=== PATIENT | male | born 1995 | race Caucasian/White ===

== ENCOUNTER 2018-02-11 21:45 | Emergency (ER) | payer BC ==
[~2018-02-11] VITALS: Ht 182.9 cm; Wt 61.0 kg
[2018-02-11 22:00] VITALS: BP 125/84
[2018-02-11] MEDS ORDERED: CEPH-264 PO (22:13)
--- NOTE | 2018-02-11 22:13 | PHYS DOC ---
Past History Past Medical History: Other (Tourette's disorder) Past Surgical History: No Surgical History Smoking: Cigarettes Alcohol Use: None Drug Use: Heroin, Marijuana Adult General Chief Complaint Chief Complaint: FACE PROBLEM HPI HPI 22-year-old male presents with report of lesion below right side of lower lip which patient is concerned is possibly MRSA versus herpes. Patient denies fever or chills. Reports is tender to touch. Review of Systems Review of Systems Constitutional: Denies fever or chills [] Integument: Reports skin lesion Neurologic: Denies headache, focal weakness or sensory changes [] Complete systems were reviewed and found to be within normal limits, except as documented in this note. Allergies Allergies Allergies Coded Allergies Type Severity Reaction Last Updated Verified No Known Drug Allergies 02/11/18 No Physical Exam Physical Exam Constitutional: Well developed, well nourished, no acute distress, non-toxic appearance. [] Lungs & Thorax: No respiratory distress noted Skin: Warm, dry, no erythema, Small 0.5cm lesion just beneath leslie border of lower lip on right. No fluctuance. Possible comedone. Neurologic: Alert and oriented X 3, normal motor function, normal sensory function, no focal deficits noted. [] Psychologic: Affect normal, judgement normal, mood normal. [] Current Patient Data Vital Signs Vital Signs Date Time Temp Pulse Resp B/P (MAP) Pulse Ox O2 Delivery O2 Flow Rate FiO2 02/11/18 22:00 98.1 76 18 99 Room Air EKG EKG [] Radiology/Procedures Radiology/Procedures [] Course & Med Decision Making Course & Med Decision Making Patient presents with patient and physical exam consistent for small comedone beneath lower lip on right. Small I&D performed with scant discharge. Empiric antibiotics given. Wound cleaned and dressed. Patient stable for discharge with outpatient follow-up with PCP. Discussed findings and plan with patient and family, who acknowledge understanding and agreement. Dragon Disclaimer Dragon Disclaimer This electronic medical record was generated, in whole or in part, using a voice recognition dictation system. Departure Departure: Impression: Primary Impression: Acne comedone Disposition: HOME, SELF-CARE Condition: STABLE Referrals: DEION VARGAS MD (PCP) Patient Instructions: Abscess Scripts Cephalexin (KEFLEX) 500 Mg Capsule 1 CAP PO TID, #21 CAP Prov: VESTA CHURCH DO 02/11/18 Incision and Drainage Incision and Drainage : Site: under lower lip on right Blade Size: 11 Progress Time out performed. Sterile gloves utilized. Chloroprep utilized. Infiltration of 1ml of 2% lidocaine with epi with successful anesthesia. Small puncture made with 11 blade. Serosanguineous fluid expressed. Antibiotic ointment and bandage placed. Patient tolerated procedure well and without any difficulty. VESTA CHURCH DO Feb 11, 2018 22:13
[2018-02-11] MEDS ORDERED: NEOMYCIN/BACITRAC/POLY TOPICAL OINTMENT 28GM TUBE. TP ONE (22:15)
[2018-02-11] MEDS ORDERED: LIDOCAINE 2%/EPI 1:100,000 20 ML VIAL. IJ ONE (22:15)
[2018-02-11] MEDS ORDERED: CEPHALEXIN 250 MG CAPSULE PO ONE (22:15)
== END 2018-02-11 23:50 | disposition home or self-care (01) ==
LOC: ER 21:45
DX: K13.0 Diseases of lips (principal); L70.9 Acne, unspecified; F95.2 Tourette's disorder; F17.210 Nicotine dependence, cigarettes, uncomplicated
CPT/HCPCS: 10060; 96372; 99283

== ENCOUNTER 2020-12-08 14:29 | Emergency (ER) | payer BC, OTHER ==
[~2020-12-08] VITALS: Ht 182.9 cm; Wt 54.8 kg
[~2020-12-08 14:29] MED LIST: CEPH-264 PO
[2020-12-08 14:33] VITALS: BP 92/53
[2020-12-08] MEDS ORDERED: IV NORMAL SALINE 1,000ML 1,000 ML IV ONE (14:45)
--- NOTE | 2020-12-08 14:46 | PHYS DOC ---
Past History Past Medical History: Other Past Surgical History: No Surgical History Smoking: Cigarettes Alcohol Use: None Drug Use: Heroin, Marijuana General Adult EDM: Chief Complaint: FEVER HPI: HPI: 25-year-old male presents with fever. The patient uses drugs and did heroin at 630 this morning. He was attempting to check himself into a drug rehab facility and they would not admit him because he had a fever. The patient temperature is 100.0 on arrival. Patient tells me that he has not had significant cough or shortness of breath. He does not know if he has been exposed to COVID-19. That is what the rehab place was worried about. He does feel generally ill but nothing specific. He has not taken any antipyretics. Review of Systems: Review of Systems: Constitutional: Fever, general unwell feeling. Eyes: Denies change in visual acuity HENT: Denies nasal congestion or sore throat Respiratory: Denies cough or shortness of breath Cardiovascular: Denies chest pain or edema GI: Denies abdominal pain, nausea, vomiting, bloody stools or diarrhea : Denies dysuria Musculoskeletal: Denies back pain or joint pain Integument: Denies rash Neurologic: Denies headache, focal weakness or sensory changes Endocrine: Denies polyuria or polydipsia Lymphatic: Denies swollen glands Psychiatric: Denies depression or anxiety Current Medications: Current Meds: Current Medications Medications (Trade) Dose Ordered Sig/Rajani Start Time Stop Time Status Last Admin Dose Admin Sodium Chloride 1,000 ml @ 1,000 mls/hr 1X ONCE 12/08/20 14:45 12/08/20 15:44 UNV Allergies: Allergies: Allergies Coded Allergies Type Severity Reaction Last Updated Verified No Known Drug Allergies 02/11/18 No Physical Exam: PE: Constitutional: Well developed, well nourished, no acute distress, unkept. [] HENT: Normocephalic, atraumatic, bilateral external ears normal, oropharynx moist, no oral exudates, nose normal. [] Eyes: PERRLA, EOMI, conjunctiva normal, no discharge. [] Neck: Normal range of motion, no tenderness, supple, no stridor. [] Cardiovascular:Heart rate regular rhythm, no murmur [] Lungs & Thorax: Bilateral breath sounds clear to auscultation [] Abdomen: Bowel sounds normal, soft, no tenderness, no masses, no pulsatile masses. [] Skin: Warm, dry, no erythema, no rash. [] Back: No tenderness, no CVA tenderness. [] Extremities: No tenderness, no cyanosis, no clubbing, ROM intact, no edema. [] Neurologic: Alert and oriented X 3, normal motor function, normal sensory function, no focal deficits noted. [] Psychologic: Affect normal, judgement normal, mood normal. [] EKG: EKG: [] Radiology/Procedures: Radiology/Procedures: [] Impressions: XR CHEST 1V INDICATION: fever COMPARISON STUDY: None. FINDINGS: Lungs: Normal lung volume. No pulmonary mass or consolidation. The tracheobronchial tree and hilar structures are normal. Pleura: No pleural effusion or pneumothorax. Heart and Mediastinum: The cardiomediastinal silhouette is normal. The great vessels of the thorax are normal. Bones and Soft Tissues: The bones and soft tissues are within normal limits. IMPRESSION: No acute cardiopulmonary process. Electronically signed by: Annmarie Ryder MD (12/08/2020 3:34 PM) [id number] DICTATED AND SIGNED BY: ANNMARIE RYDER MD DATE: 12/08/20 1533 CC: GREGORIO ALMAGUER DO; MARITZA BELTRÁN MD ~MTH0 0 Heart Score: C/O Chest Pain: N/A Risk Factors: Risk Factors: DM, Current or recent (<one month) smoker, HTN, HLP, family history of CAD, obesity. Risk Scores: Score 0 - 3: 2.5% MACE over next 6 weeks - Discharge Home Score 4 - 6: 20.3% MACE over next 6 weeks - Admit for Clinical Observation Score 7 - 10: 72.7% MACE over next 6 weeks - Early Invasive Strategies Course & Med Decision Making: Course & Med Decision Making Pertinent Labs and Imaging studies reviewed. (See chart for details) The patient's labs are unremarkable. We have done a Covid swab but the results will not come back for couple days. The patient's were given a liter of normal saline. This could be COVID-19 or another viral illness. I have advised the patient stop doing drugs. He is stable for discharge at this time. [] Dragon Disclaimer: Beverley Disclaimer: This electronic medical record was generated, in whole or in part, using a voice recognition dictation system. Departure Departure: Impression: Primary Impression: Viral syndrome Disposition: HOME / SELF CARE / HOMELESS Condition: STABLE Referrals: MARITZA BELTRÁN MD (PCP) Patient Instructions: Viral Syndrome GREGORIO ALMAGUER DO December 08, 2020 14:46
[2020-12-08 15:28] LABS: BASO % 0 % (0-3); EOS % 0 % (0-3); HEMATOCRIT 41.5 % (39.0-53.0); HEMOGLOBIN 14.7 g/dL (13.0-17.5); LYMPH # 0.5 x10^3/uL (1.0-4.8); LYMPH % 13 % (24-48); MEAN CORPUSCULAR HEMOGLOBIN 30 pg (25-35); MEAN CORPUSCULAR HGB CONC 35 g/dL (31-37); MEAN CORPUSCULAR VOLUME 84 fL (79-100); MONO # 0.6 x10^3/uL (0.0-1.1); MONO % 14 % (0-9); NEUT % 73 % (31-73); PLATELET COUNT 117 x10^3/uL (140-400); RED BLOOD COUNT 4.93 x10^6/uL (4.30-5.70); RED CELL DISTRIBUTION WIDTH 13.2 % (11.5-14.5); WHITE BLOOD COUNT 4.1 x10^3/uL (4.0-11.0)
[2020-12-08 15:29] LABS: CALCIUM 8.4 mg/dL (8.5-10.1); GFR 90.3; POTASSIUM 4.2 mmol/L (3.5-5.1)
[2020-12-08 15:35] LABS: ALBUMIN 3.6 g/dL (3.4-5.0); ALBUMIN/GLOBULIN RATIO 1.1 (1.0-1.7); TOTAL BILIRUBIN 1.1 mg/dL (0.2-1.0)
--- NOTE | 2020-12-08 15:36 | RAD ---
XR CHEST 1V INDICATION: fever COMPARISON STUDY: None. FINDINGS: Lungs: Normal lung volume. No pulmonary mass or consolidation. The tracheobronchial tree and hilar st ructures are normal. Pleura: No pleural effusion or pneumothorax. Heart and Mediastinum: The cardiomediastinal silhouette is normal. The great vessels of the thorax ar e normal. Bones and Soft Tissues: The bones and soft tissues are within normal limits. IMPRESSION: No acute cardiopulmonary process. Electronically signed by: Gideon Bird MD (12/08/2020 3:34 PM) [id number]
== END 2020-12-08 16:44 | disposition home or self-care (01) ==
LOC: ER 14:29
DX: B34.9 Viral infection, unspecified (principal); F17.210 Nicotine dependence, cigarettes, uncomplicated; F12.10 Cannabis abuse, uncomplicated; F11.20 Opioid dependence, uncomplicated; Z20.822 Contact with and (suspected) exposure to COVID-19
CPT/HCPCS: 71045; 80053; 85025; 96360; 99284; C9803; J7030; U0003